=== PATIENT | female | born 1945 | race Caucasian/White ===

== ENCOUNTER 2017-05-13 12:28 | Inpatient (IN) | payer MEDICARE, OTHER ==
[2017-05-13 12:28] VITALS: BMI 25.8
[2017-05-13] MEDS ORDERED: Morphine 4 MG/ML VIAL IV STA (13:28)
--- NOTE | 2017-05-13 13:33 | C.PDOC ---
History Of Present Illness 71 year old female, whose past family history includes CVA and left-sided weakness, presents to the ED accompanied by her and son for evaluation of headache, right hip pain and left hand pain which began after she suffered a fall last night. Patient states she fell backwards after losing balance and notes she has been unable to ambulate since the incident. Today, patient's family decided to bring her in for further evaluation. Patient denies LOC, chest pain, shortness of breath, neck pain, back pain, extremity numbness/ weakness. Chief Complaint (Nursing): Hip Pain History Per: Patient, Family ( and son ) History/Exam Limitations: no limitations Onset/Duration Of Symptoms: Hrs Current Symptoms Are (Timing): Still Present Additional History Per: Patient, Family - Hip Description Of Injury: Fell, Lost Balance Past Medical History Reviewed: Historical Data, Nursing Documentation, Vital Signs Vital Signs: Last Vital Signs Temp 97.7 F 05/13/17 17:52 Pulse 98 H 05/13/17 17:52 Resp 20 05/13/17 17:52 BP 121/79 05/13/17 17:52 Pulse Ox 93 L 05/13/17 20:10 - Medical History PMH: Cardia Arrhythmia, COPD, CVA, HTN, Hypercholesterolemia Surgical History: Cholecystectomy - [facility] Procedures ENTERAL INFUSION OF CONCENTRATED NUT. SUBSTANCES (08/24/14) INFLUENZA VACCINATION (08/16/14) INJECT/INFUSE THROMBOLYTIC AGENT (08/24/14) OCCUPATIONAL THERAPY (08/24/14) PERCUTANEOUS [ENDOSCOPIC] GASTROSTOMY [PEG] (08/24/14) PHYSICAL THERAPY NEC (08/24/14) VACCINATION NEC (11/05/13) Family History: States: OR - Social History Hx Tobacco Use: Yes (past smoker) Hx Alcohol Use: No Hx Substance Use: No - Immunization History Hx Tetanus Toxoid Vaccination: No Hx Influenza Vaccination: No Hx Pneumococcal Vaccination: No Review Of Systems Cardiovascular: Negative for: Chest Pain Respiratory: Negative for: Shortness of Breath Musculoskeletal: Positive for: Hand Pain (right), Other (left hip pain ). Negative for: Neck Pain, Back Pain Neurological: Positive for: Headache. Negative for: Weakness, Numbness, Other ( LOC ) Physical Exam - Physical Exam Appears: Non-toxic, No Acute Distress Skin: Normal Color, Warm, Dry Head: Tenderness (right parietal scalp ), No Swelling, No Abrasion, No Laceration Eye(s): bilateral: Normal Inspection Oral Mucosa: Moist Neck: No Step Off Deformity, Supple Chest: Symmetrical, No Deformity, No Tenderness Cardiovascular: Rhythm Regular, No Murmur Respiratory: Normal Breath Sounds, No Rales, No Rhonchi, No Wheezing Gastrointestinal/Abdominal: Soft, No Tenderness, No Guarding, No Rebound Extremity: Normal ROM, Tenderness (lateral aspect of right hip, dorsal aspect of left hand ), No Calf Tenderness, Capillary Refill (less than 2 seconds ), No Deformity, Swelling (to dorsal aspect of left hand ) Neurological/Psych: Oriented x3, Normal Speech, Normal Cognition Gait: Unable To Assess ED Course And Treatment - Laboratory Results Result Diagrams: 05/13/17 14:30 05/13/17 14:30 ECG: Interpreted By Me, Viewed By Me ECG Rhythm: Sinus Rhythm Interpretation Of ECG: Normal Sinus Rhythm at rate 83bpm. Nonspecific ST Abnormality. Rate From EC O2 Sat by Pulse Oximetry: 93 - Other Rad left hand XR X-Ray: Interpreted by Me, Viewed By Me, Read By Radiologist Interpretation: IMPRESSION: Diffuse osseous demineralization. Displaced fracture of the distal 2nd metacarpal. Soft tissue swelling. Hip/pelvis XR X-Ray: Interpreted by Me, Viewed By Me, Read By Radiologist Interpretation: IMPRESSION: No acute fracture dislocation of the right hip with the pelvic ring remaining intact though degenerative changes are seen at the bilateral sacroiliac and hip joints symmetrically. CT Head X-Ray: Interpreted by Me, Viewed By Me, Read By Radiologist Interpretation: IMPRESSION: Encephalomalacia within the right MCA territory as above. Ex vacuo dilatation of the right lateral ventricle. Please note that MRI with diffusion imaging is more sensitive in the detection of acute ischemic event. CXR X-Ray: Interpreted by Me, Viewed By Me, Read By Radiologist Interpretation: IMPRESSION: Potential limited right middle lobe infiltrate. Further clinical correlation is advised. Interval cardiomegaly is not completely excluded although there is likely an element of technical magnification caused by frontal technique. No pulmonary vascular derangement pattern appreciable at this time. Medical Decision Making Medical Decision Making: Initial Impression: 71 y/o female with headache, hip pain and hand pain s/p fall Plan: * Bloodwork * CT Head * CXR * Left hand XR * Hip XR * Morphine IV * Tylenol PO * reassess and disposition Progress: Bloodwork, CT Head, CXR, Left Hand XR, and Hip XR ordered and reviewed. Morphine IV and Tylenol PO administered. Left hand XR finding displaced fracture of the distal 2nd metacarpal. Volar splint applied by business technology teacher and checked by me. attempted to ambulate patient and patient unable to stand. Will admit to hospital. Case discussed with patient's PMD, Dr. Alonso, who advised admission to med surgical floor. Advised Dr. Torrez for consult. Disposition Discussed With : Abhay Alonso Comment: Dr. Licea for ortho consult Doctor Will See Patient In The: Hospital - Disposition Disposition: HOSPITALIZED Disposition Time: 16:34 Condition: FAIR - Clinical Impression Clinical Impression: Hip pain, Fracture, metacarpal - Scribe Statement The provider has reviewed the documentation as recorded by the Scribe (Edith De Jesus) Provider Attestation: All medical record entries made by the Scribe were at my direction and personally dictated by me. I have reviewed the chart and agree that the record accurately reflects my personal performance of the history, physical exam, medical decision making, and the department course for this patient. I have also personally directed, reviewed, and agree with the discharge instructions and disposition.
[2017-05-13] MEDS ORDERED: Morphine 4 MG/ML VIAL ONE (14:30)
--- NOTE | 2017-05-13 14:32 | RAD ---
PROCEDURE: Left Hand Radiographs. HISTORY: fall COMPARISON: None available. FINDINGS: BONES: Diffuse osseous demineralization. Displaced fracture of the distal 2nd metacarpal. JOINTS: No dislocation. SOFT TISSUES: Soft tissue swelling. No evidence of radiopaque foreign body. OTHER FINDINGS: None. IMPRESSION: Diffuse osseous demineralization. Displaced fracture of the distal 2nd metacarpal. Soft tissue swelling.
[2017-05-13 14:34] LABS: BASO % 0.3 % (0.0-2.0); EOS # 0.1 K/uL (0.0-0.7); EOS % 0.6 % (0.0-4.0); HEMATOCRIT 47.9 % (34.0-47.0); LYMPH # 1.1 K/uL (1.0-4.3); LYMPH % 12.3 % (20.0-40.0); MEAN CELL VOLUME 98.5 fL (81.0-99.0); MEAN CORPUSCULAR HEMOGLOBIN 33.8 pg (27.0-31.0); MEAN CORPUSCULAR HGB CONC 34.3 g/dL (33.0-37.0); MEAN PLATELET VOLUME 10.3 fL (7.2-11.7); NRBC % 0.1 % (0.0-2.0); RED CELL DISTRIBUTION WIDTH 13.9 % (11.5-14.5); WHITE BLOOD COUNT 9.3 K/uL (4.8-10.8)
[2017-05-13 14:46] LABS: CHLORIDE 102 mmol/L (98-107); SODIUM 139 mmol/L (132-148)
[2017-05-13 14:48] LABS: ALKALINE PHOSPHATASE 119 U/L (38-126); AST/SGOT 88 U/L (14-36); CARBON DIOXIDE 28 mmol/L (22-30); GFR AFRICAN-AMERICAN > 60; TOTAL PROTEIN 8.1 g/dL (6.3-8.3)
[2017-05-13 14:49] LABS: ALT/SGPT 64 U/L (9-52); BLOOD UREA NITROGEN 26 mg/dL (7-17); CALCIUM 10.1 mg/dl (8.6-10.4); GLUCOSE,RANDOM 77 mg/dL (65-105)
[2017-05-13 15:06] LABS: POTASSIUM 4.9 mmol/L (3.6-5.2)
--- NOTE | 2017-05-13 15:14 | CT ---
PROCEDURE: CT HEAD WITHOUT CONTRAST. HISTORY: R/O Bleed COMPARISON: Noncontrast head CT performed 07/25/15 TECHNIQUE: Axial computed tomography images were obtained through the head/brain without intravenous contrast. Radiation dose: Total exam DLP = 765.05 mGy-cm. This CT exam was performed using one or more of the following dose reduction techniques: Automated exposure control, adjustment of the mA and/or kV according to patient size, and/or use of iterative reconstruction technique. FINDINGS: HEMORRHAGE: No intracranial hemorrhage. BRAIN: No mass effect or edema. Encephalomalacia involving the frontal, parietal, and temporal lobes, as well as the basal ganglia, consistent with a chronic right MCA infarction. Scattered foci of calcification the brain, which may be the result of prior infectious processes. VENTRICLES: No hydrocephalus. Ex vacuo dilatation of the right lateral ventricle. CALVARIUM: Unremarkable. PARANASAL SINUSES: Unremarkable as visualized. No significant inflammatory changes. MASTOID AIR CELLS: Unremarkable as visualized. No inflammatory changes. OTHER FINDINGS: None. IMPRESSION: Encephalomalacia within the right MCA territory as above. Ex vacuo dilatation of the right lateral ventricle. Please note that MRI with diffusion imaging is more sensitive in the detection of acute ischemic event.
--- NOTE | 2017-05-13 15:58 | RAD ---
PROCEDURE: CHEST RADIOGRAPH, 1 VIEW HISTORY: SOB COMPARISON: Portable chest 07/25/2015 FINDINGS: LUNGS: There is a borderline area patchy density obscuring the rior border and may indicate a limited right middle lobe infiltrate. Clinically correlate here. No left-sided airspace disease identified. PLEURA: No pneumothorax or pleural fluid seen. CARDIOVASCULAR: Mildly prominent cardiac silhouette is identified. No pulmonary vascular derangement. OSSEOUS STRUCTURES: No significant abnormalities. VISUALIZED UPPER ABDOMEN: Normal. OTHER FINDINGS: None. IMPRESSION: Potential limited right middle lobe infiltrate. Further clinical correlation is advised. Interval cardiomegaly is not completely excluded although there is likely an element of technical magnification caused by frontal technique. No pulmonary vascular derangement pattern appreciable at this time.
--- NOTE | 2017-05-13 16:00 | RAD ---
PROCEDURE: Right Hip Radiographs. HISTORY: fall COMPARISON: None. FINDINGS: BONES: The pelvic ring appears intact as well as the right hip without fracture identified. No destructive bony lesion is identified. Pubic symphysis appears intact. JOINTS: Degenerative sclerosis is appreciated related to the cortex of the bilateral hip joints as well as sacroiliac joints symmetrically. No dislocation of the right hip joint is identified. SOFT TISSUES: Vascular calcifications are identified in the pelvis soft tissues toward the right inferiorly. OTHER FINDINGS: None. IMPRESSION: No acute fracture dislocation of the right hip with the pelvic ring remaining intact though degenerative changes are seen at the bilateral sacroiliac and hip joints symmetrically.
[2017-05-13] MEDS: Acetaminophen-Codeine 300/30 mg Tab PO PRN (22:30)
[2017-05-14 06:48] LABS: INR 1.7
[2017-05-14] MEDS ORDERED: Tiotropium 18 mcg Cap For Inhalation IH SCH (08:00)
[2017-05-14] MEDS: Fluticasone-Salmeterol 250-50mcg Diskus INH SCH ×2 (09:47→19:37)
[2017-05-14] MEDS: Tiotropium 18 mcg Cap For Inhalation IH SCH (09:49)
--- NOTE | 2017-05-14 12:26 | CP.PCM.HP ---
History of Present Illness - History of Present Illness History of Present Illness: 71 years old female with PMHx significant for HTN, COPD, CVA, Left Hemiplegia and Atrial Fibrillation. Patient brought to ER by family members after patient sustained a fall at home. X Ray of the left hand showed Metacarpal Fracture. Patient denies headache, dizziness, neck pain, chest pain, shortness of breath, abdominal pain or urinary symptoms. Present on Admission - Present on Admission Any Indicators Present on Admission: No Review of Systems - Musculoskeletal Musculoskeletal: Abnormal Gait, Limited Range of Motion, Muscle Weakness Past Patient History - Infectious Disease Hx of Infectious Diseases: None - Past Medical History & Family History Past Medical History?: Yes - Past Social History Smoking Status: Former Smoker - CARDIAC Hx Cardia Arrhythmia: Yes Hx Hypercholesterolemia: Yes Hx Hypertension: Yes - PULMONARY Hx Chronic Obstructive Pulmonary Disease (COPD): Yes - NEUROLOGICAL Hx Neurological Disorder: Yes HX Cerebrovascular Accident: Yes Hx Syncope: Yes - HEENT Hx HEENT Problems: No - RENAL Hx Chronic Kidney Disease: No - ENDOCRINE/METABOLIC Hx Endocrine Disorders: No - HEMATOLOGICAL/ONCOLOGICAL Hx Blood Disorders: No - INTEGUMENTARY Hx Dermatological Problems: No - MUSCULOSKELETAL/RHEUMATOLOGICAL Hx Arthritis: No Hx Falls: Yes - GASTROINTESTINAL Hx Gastrointestinal Disorders: No - GENITOURINARY/GYNECOLOGICAL Hx Genitourinary Disorders: No - PSYCHIATRIC Hx Substance Use: No - SURGICAL HISTORY Hx Cholecystectomy: Yes - ANESTHESIA Hx Anesthesia: Yes Hx Anesthesia Reactions: No Hx Malignant Hyperthermia: No Meds Allergies/Adverse Reactions: Allergies Allergy/AdvReac Type Severity Reaction Status Date / Time Penicillins Allergy Verified 05/13/17 12:47 Physical Exam - Constitutional Appears: No Acute Distress - Head Exam Head Exam: ATRAUMATIC, NORMAL INSPECTION, NORMOCEPHALIC - Eye Exam Eye Exam: EOMI, Normal appearance, PERRL - ENT Exam ENT Exam: Mucous Membranes Moist, Normal Exam - Neck Exam Neck exam: Positive for: Full Rom, Normal Inspection - Respiratory Exam Respiratory Exam: Clear to Auscultation Bilateral, NORMAL BREATHING PATTERN - Cardiovascular Exam Cardiovascular Exam: REGULAR RHYTHM, +S1, +S2 - GI/Abdominal Exam GI & Abdominal Exam: Normal Bowel Sounds, Soft - Extremities Exam Extremities exam: Positive for: normal capillary refill, normal inspection - Back Exam Back exam: NORMAL INSPECTION - Neurological Exam Neurological exam: Alert, Oriented x3 - Expanded Neurological Exam Expanded Neuro motor strength exam: Left Upper Extremity: 2/1, Left Lower Extremity: 2/ - Psychiatric Exam Psychiatric exam: Normal Affect, Normal Mood - Skin Skin Exam: Dry, Intact, Normal Color, Warm Results - Vital Signs Recent Vital Signs: Last Vital Signs Temp 98.6 F 05/14/17 08:20 Pulse 106 H 05/14/17 08:20 Resp 20 05/14/17 08:20 BP 133/73 05/14/17 08:45 Pulse Ox 96 05/14/17 08:20 - Labs Result Diagrams: 05/13/17 14:30 05/13/17 14:30 Labs: Laboratory Results - last 24 hr 05/13/17 05/13/17 05/14/17 14:30 14:30 06:19 WBC 9.3 D RBC 4.86 Hgb 16.4 H D Hct 47.9 H MCV 98.5 MCH 33.8 H MCHC 34.3 RDW 13.9 Plt Count 135 MPV 10.3 Neut % (Auto) 75.8 H Lymph % (Auto) 12.3 L [place] % (Auto) 11.0 H Eos % (Auto) 0.6 Baso % (Auto) 0.3 Neut # 7.0 Lymph # 1.1 [place] # 1.0 H Eos # 0.1 Baso # 0.0 PT 19.2 H INR 1.7 APTT 33 Sodium 139 Potassium 4.9 Chloride 102 Carbon Dioxide 28 Anion Gap 14 BUN 26 H Creatinine 0.8 Est GFR ( Amer) > 60 Est GFR (Non-Af Amer) > 60 POC Glucose (mg/dL) Random Glucose 77 Calcium 10.1 Total Bilirubin 3.0 H AST 88 H ALT 64 H D Alkaline Phosphatase 119 Total Creatine Kinase 263 H Troponin I 0.0480 Total Protein 8.1 Albumin 4.0 Globulin 4.1 H Albumin/Globulin Ratio 1.0 05/14/17 05/14/17 07:20 11:18 WBC RBC Hgb Hct MCV MCH MCHC RDW Plt Count MPV Neut % (Auto) Lymph % (Auto) [place] % (Auto) Eos % (Auto) Baso % (Auto) Neut # Lymph # [place] # Eos # Baso # PT INR APTT Sodium Potassium Chloride Carbon Dioxide Anion Gap BUN Creatinine Est GFR ( Amer) Est GFR (Non-Af Amer) POC Glucose (mg/dL) 81 97 Random Glucose Calcium Total Bilirubin AST ALT Alkaline Phosphatase Total Creatine Kinase Troponin I Total Protein Albumin Globulin Albumin/Globulin Ratio Assessment & Plan (1) Fracture, metacarpal Assessment and Plan: Orthopedic evaluation. Pain management. Status: Acute (2) Atrial fibrillation Assessment and Plan: Cardiology evaluation. Continue same treatment. Status: Chronic Priority: Medium (3) COPD (chronic obstructive pulmonary disease) Assessment and Plan: Continue same treatment. Status: Acute (4) Hypertension Assessment and Plan: Continue same treatment. Status: Acute
--- NOTE | 2017-05-14 15:33 | CARD ---
APPROVED REPORT EKG Measurement Heart [id number] <Conclusion> Normal sinus rhythm Nonspecific ST abnormality Abnormal ECG
[2017-05-14] MEDS: Acetaminophen-Codeine 300/30 mg Tab PO PRN (16:45)
[2017-05-14] MEDS: Rosuvastatin Calcium 2.5 mg Tab PO SCH (21:21)
--- NOTE | 2017-05-14 22:49 | CP.PCM.CON ---
History of Present Illness - History of Present Illness History of Present Illness: 71 years old female with PMHx significant for HTN, COPD, CVA, Left Hemiplegia and Atrial Fibrillation. Patient brought to ER by family members after patient sustained a fall at home. X Ray of the left hand showed Metacarpal Fracture. Patient denies headache, dizziness, neck pain, chest pain, shortness of breath, abdominal pain or urinary symptoms. Present on Admission - Present on Admission Any Indicators Present on Admission: No Review of Systems - Musculoskeletal Musculoskeletal: Abnormal Gait, Limited Range of Motion, Muscle Weakness Meds Allergies/Adverse Reactions: Allergies Allergy/AdvReac Type Severity Reaction Status Date / Time Penicillins Allergy Verified 05/13/17 12:47 Physical Exam - Constitutional Appears: No Acute Distress - Head Exam Head Exam: ATRAUMATIC, NORMAL INSPECTION, NORMOCEPHALIC - Eye Exam Eye Exam: EOMI, Normal appearance, PERRL - ENT Exam ENT Exam: Mucous Membranes Moist, Normal Exam - Neck Exam Neck exam: Positive for: Full Rom, Normal Inspection - Respiratory Exam Respiratory Exam: Clear to Auscultation Bilateral, NORMAL BREATHING PATTERN - Cardiovascular Exam Cardiovascular Exam: REGULAR RHYTHM, +S1, +S2 - GI/Abdominal Exam GI & Abdominal Exam: Normal Bowel Sounds, Soft - Extremities Exam Extremities exam: Positive for: normal capillary refill, normal inspection - Back Exam Back exam: NORMAL INSPECTION - Neurological Exam Neurological exam: Alert, Oriented x3 - Expanded Neurological Exam Expanded Neuro motor strength exam: Left Upper Extremity: 2/1, Left Lower Extremity: 2/1 - Psychiatric Exam Psychiatric exam: Normal Affect, Normal Mood - Skin Skin Exam: Dry, Intact, Normal Color, Warm Past Patient History - Infectious Disease Hx of Infectious Diseases: None - Past Medical History & Family History Past Medical History?: Yes - Past Social History Smoking Status: Former Smoker - CARDIAC Hx Cardiac Disorders: Yes (A.Fib) Hx Hypercholesterolemia: Yes Hx Hypertension: Yes - PULMONARY Hx Chronic Obstructive Pulmonary Disease (COPD): Yes - NEUROLOGICAL HX Cerebrovascular Accident: Yes (left keon) - HEENT Hx HEENT Problems: No - RENAL Hx Chronic Kidney Disease: No - ENDOCRINE/METABOLIC Hx Endocrine Disorders: No - HEMATOLOGICAL/ONCOLOGICAL Hx Blood Disorders: No - INTEGUMENTARY Hx Dermatological Problems: No - MUSCULOSKELETAL/RHEUMATOLOGICAL Hx Arthritis: Yes - GASTROINTESTINAL Hx Gastrointestinal Disorders: No - GENITOURINARY/GYNECOLOGICAL Hx Genitourinary Disorders: No - PSYCHIATRIC Hx Substance Use: No - SURGICAL HISTORY Hx Cholecystectomy: Yes - ANESTHESIA Hx Anesthesia: Yes Hx Anesthesia Reactions: No Hx Malignant Hyperthermia: No Meds Allergies/Adverse Reactions: Allergies Allergy/AdvReac Type Severity Reaction Status Date / Time Penicillins Allergy Verified 05/13/17 12:47 - Medications Medications: Current Medications Acetaminophen (Tylenol 325mg Tab) 650 mg PO Q6 PRN PRN Reason: Pain, moderate (4-7) Albuterol Sulfate (Albuterol 0.083% Inhal [place] (2.5 Mg/3 Ml) Ud) 2.5 mg IH RQ4 PRN PRN Reason: Shortness of Breath Amiodarone HCl (Cordarone) 200 mg PO HS [facility] Last Admin: 05/14/17 21:21 Dose: 200 mg Apixaban (Eliquis) 5 mg PO Q12H [facility] Last Admin: 05/14/17 11:35 Dose: 5 mg Famotidine (Pepcid) 20 mg PO DAILY [facility] Last Admin: 05/14/17 09:12 Dose: 20 mg Levetiracetam (Keppra) 250 mg PO BID [facility] Last Admin: 05/14/17 17:09 Dose: 250 mg Metoprolol Tartrate (Lopressor) 25 mg PO Q8H [facility] Last Admin: 05/14/17 16:38 Dose: 25 mg Morphine Sulfate (Morphine) 2 mg IVP Q4 PRN PRN Reason: Pain, severe (8-10) Pneumococcal Polyvalent Vaccine (Pneumovax 23 Vaccine) 0.5 ml IM .ONCE ONE Stop: 05/15/17 10:01 Rosuvastatin Calcium (Crestor) 2.5 mg PO HS [facility] Last Admin: 05/14/17 21:21 Dose: 2.5 mg Fluticasone/Salmeterol (Advair Diskus 250/50) 1 puff INH RQ12 [facility] Last Admin: 05/14/17 19:37 Dose: 1 puff Tiotropium [place] (Spiriva) 18 mcg IH RQD [facility] Last Admin: 05/14/17 09:49 Dose: 18 mcg Results - Vital Signs Recent Vital Signs: Last Vital Signs Temp 98.4 F 05/14/17 15:00 Pulse 123 H 05/14/17 15:00 Resp 20 05/14/17 15:00 BP 131/90 05/14/17 16:42 Pulse Ox 95 05/14/17 15:00 - Labs Result Diagrams: 05/13/17 14:30 05/13/17 14:30 Labs: Laboratory Results - last 24 hr 05/14/17 05/14/17 05/14/17 06:19 07:20 11:18 PT 19.2 H INR 1.7 APTT 33 POC Glucose (mg/dL) 81 97 05/14/17 05/14/17 16:06 21:13 PT INR APTT POC Glucose (mg/dL) 99 122 H Assessment & Plan - Assessment and Plan (Free Text) Assessment: (1) Fracture, metacarpal Assessment and Plan: Orthopedic evaluation. Pain management. Status: Acute (2) Atrial fibrillation Assessment and Plan: Rate controlled Continue anticoagulation for A Fib (3) COPD (chronic obstructive pulmonary disease) Assessment and Plan: Continue same treatment. Status: Acute (4) Hypertension Assessment and Plan: Continue same treatment. Status: Acute
[2017-05-15] MEDS: Tiotropium 18 mcg Cap For Inhalation IH SCH (07:38)
[2017-05-15] MEDS: Fluticasone-Salmeterol 250-50mcg Diskus INH SCH ×2 (07:38→19:59)
[2017-05-15] MEDS: Albuterol 0.083% Inhal Sol (2.5 mg/3 mL) UD IH PRN (07:38)
[2017-05-15] MEDS ORDERED: Pneumococcal 23-Valent Vaccine IM ONE (10:00)
[2017-05-15] MEDS ORDERED: Influenza Vaccine 60 mcg/0.5 mL SYR (4YR UP) IM ONE (10:00)
--- NOTE | 2017-05-15 11:47 | CP.PCM.CON ---
History of Present Illness - History of Present Illness History of Present Illness: Plastic Surgery Consult Note for Dr. Fang Reason for consult: 2nd Metacarpal fracture 71 F with PMH of HTN, COPD, CVA, Left Hemiplegia and Atrial Fibrillation presented to [facility] for mechanical fall. Patient was walking at home when she lost her balance and tried to grab shoe rack but could not hold herself up. History was provided by son who was at bedside. ER did X Ray of the left hand which showed short oblique displaced fracture of 2nd metacarpal neck. Patient complaining of diffuse pain on left hand. Patient unable to quantify or qualify pain. Denies any exacerbating or alleviating factors. ROS unobtainable due to clinical condition. PMH: HTN, COPD, CVA, Left Hemiplegia and Atrial Fibrillation Meds: As per EMR Allergy: PCN PSH: Cholecystectomy FH: unknown Social: former smoker, denies etoh or illicit drug use, patient has residual left hemiplegia and needs some assistance with ADLs Review of Systems - Review of Systems Systems not reviewed;Unavailable: Acuity of Condition Past Patient History - Infectious Disease Hx of Infectious Diseases: None - Past Medical History & Family History Past Medical History?: Yes - Past Social History Smoking Status: Former Smoker - CARDIAC Hx Cardiac Disorders: Yes (A.Fib) Hx Hypercholesterolemia: Yes Hx Hypertension: Yes - PULMONARY Hx Chronic Obstructive Pulmonary Disease (COPD): Yes - NEUROLOGICAL HX Cerebrovascular Accident: Yes (left keon) - HEENT Hx HEENT Problems: No - RENAL Hx Chronic Kidney Disease: No - ENDOCRINE/METABOLIC Hx Endocrine Disorders: No - HEMATOLOGICAL/ONCOLOGICAL Hx Blood Disorders: No - INTEGUMENTARY Hx Dermatological Problems: No - MUSCULOSKELETAL/RHEUMATOLOGICAL Hx Arthritis: Yes - GASTROINTESTINAL Hx Gastrointestinal Disorders: No - GENITOURINARY/GYNECOLOGICAL Hx Genitourinary Disorders: No - PSYCHIATRIC Hx Substance Use: No - SURGICAL HISTORY Hx Cholecystectomy: Yes - ANESTHESIA Hx Anesthesia: Yes Hx Anesthesia Reactions: No Hx Malignant Hyperthermia: No Meds Allergies/Adverse Reactions: Allergies Allergy/AdvReac Type Severity Reaction Status Date / Time Penicillins Allergy Verified 05/13/17 12:47 - Medications Medications: Current Medications Acetaminophen (Tylenol 325mg Tab) 650 mg PO Q6 PRN PRN Reason: Pain, moderate (4-7) Albuterol Sulfate (Albuterol 0.083% Inhal [place] (2.5 Mg/3 Ml) Ud) 2.5 mg IH RQ4 PRN PRN Reason: Shortness of Breath Last Admin: 05/15/17 07:38 Dose: 2.5 mg Amiodarone HCl (Cordarone) 200 mg PO HS [facility] Last Admin: 05/14/17 21:21 Dose: 200 mg Apixaban (Eliquis) 5 mg PO Q12H [facility] Last Admin: 05/15/17 00:54 Dose: 5 mg Famotidine (Pepcid) 20 mg PO DAILY [facility] Last Admin: 05/15/17 09:09 Dose: 20 mg Levetiracetam (Keppra) 250 mg PO BID [facility] Last Admin: 05/15/17 09:09 Dose: 250 mg Metoprolol Tartrate (Lopressor) 25 mg PO Q8H [facility] Last Admin: 05/15/17 08:42 Dose: 25 mg Morphine Sulfate (Morphine) 2 mg IVP Q4 PRN PRN Reason: Pain, severe (8-10) Rosuvastatin Calcium (Crestor) 2.5 mg PO HS [facility] Last Admin: 05/14/17 21:21 Dose: 2.5 mg Fluticasone/Salmeterol (Advair Diskus 250/50) 1 puff INH RQ12 [facility] Last Admin: 05/15/17 07:38 Dose: 1 puff Tiotropium Keo (Spiriva) 18 mcg IH RQD [facility] Last Admin: 05/15/17 07:38 Dose: 18 mcg Physical Exam - Constitutional Appears: No Acute Distress - Head Exam Head Exam: ATRAUMATIC, NORMOCEPHALIC - ENT Exam ENT Exam: Mucous Membranes Moist - Respiratory Exam Respiratory Exam: NORMAL BREATHING PATTERN - Cardiovascular Exam Cardiovascular Exam: REGULAR RHYTHM - GI/Abdominal Exam GI & Abdominal Exam: Soft. absent: Distended, Guarding, Rebound, Tenderness - Extremities Exam Additional comments: Left hand with ecchymosis and edema, tender to touch - Neurological Exam Neurological exam: Alert - Psychiatric Exam Psychiatric exam: Flat Affect - Skin Skin Exam: Dry, Intact, Warm Results - Vital Signs Recent Vital Signs: Last Vital Signs Temp 98.3 F 05/15/17 08:16 Pulse 101 H 05/15/17 08:16 Resp 20 05/15/17 08:16 BP 128/70 05/15/17 08:42 Pulse Ox 99 05/15/17 08:16 - Labs Result Diagrams: 05/13/17 14:30 05/13/17 14:30 Labs: Laboratory Results - last 24 hr 05/14/17 05/14/17 05/15/17 16:06 21:13 07:11 POC Glucose (mg/dL) 99 122 H 83 05/15/17 11:03 POC Glucose (mg/dL) 119 H Assessment & Plan - Assessment and Plan (Free Text) Plan: 71 F with short oblique displaced fracture of 2nd metacarpal neck on L hand -Keep hand in splint -No surgical intervention needed at this time -Analgesics PRN -Rest, elevation, Ice, compression -Patient can follow up with hand specialist as outpatient -DHIRAJ Vasquez PGY1
--- NOTE | 2017-05-15 18:44 | CP.PCM.DIS ---
Provider - Provider Date of Admission: 05/13/17 17:36 Attending physician: Abhay Alonso MD Time Spent in preparation of Discharge (in minutes): 30 Diagnosis - Discharge Diagnosis (1) Fracture, metacarpal Status: Acute Priority: Medium (2) Atrial fibrillation Status: Chronic Priority: Medium (3) COPD (chronic obstructive pulmonary disease) Status: Acute (4) Hypertension Status: Acute Hospital Course - Lab Results Lab Results: Most Recent Lab Values WBC 9.3 K/uL (4.8-10.8) D 05/13/17 14:30 RBC 4.86 Mil/uL (3.80-5.20) 05/13/17 14:30 Hgb 16.4 g/dL (11.0-16.0) H D 05/13/17 14:30 Hct 47.9 % (34.0-47.0) H 05/13/17 14:30 MCV 98.5 fL (81.0-99.0) 05/13/17 14:30 MCH 33.8 pg (27.0-31.0) H 05/13/17 14:30 MCHC 34.3 g/dL (33.0-37.0) 05/13/17 14:30 RDW 13.9 % (11.5-14.5) 05/13/17 14:30 Plt Count 135 K/uL (130-400) 05/13/17 14:30 MPV 10.3 fL (7.2-11.7) 05/13/17 14:30 Neut % (Auto) 75.8 % (50.0-75.0) H 05/13/17 14:30 Lymph % (Auto) 12.3 % (20.0-40.0) L 05/13/17 14:30 [place] % (Auto) 11.0 % (0.0-10.0) H 05/13/17 14:30 Eos % (Auto) 0.6 % (0.0-4.0) 05/13/17 14:30 Baso % (Auto) 0.3 % (0.0-2.0) 05/13/17 14:30 Neut # 7.0 K/uL (1.8-7.0) 05/13/17 14:30 Lymph # 1.1 K/uL (1.0-4.3) 05/13/17 14:30 [place] # 1.0 K/uL (0.0-0.8) H 05/13/17 14:30 Eos # 0.1 K/uL (0.0-0.7) 05/13/17 14:30 Baso # 0.0 K/uL (0.0-0.2) 05/13/17 14:30 PT 19.2 SECONDS (9.7-12.2) H 05/14/17 06:19 INR 1.7 05/14/17 06:19 APTT 33 SECONDS (21-34) 05/14/17 06:19 Sodium 139 mmol/L (132-148) 05/13/17 14:30 Potassium 4.9 mmol/L (3.6-5.2) 05/13/17 14:30 Chloride 102 mmol/L (98-107) 05/13/17 14:30 Carbon Dioxide 28 mmol/L (22-30) 05/13/17 14:30 Anion Gap 14 (10-20) 05/13/17 14:30 BUN 26 mg/dL (7-17) H 05/13/17 14:30 Creatinine 0.8 mg/dL (0.7-1.2) 05/13/17 14:30 Est GFR ( Amer) > 60 05/13/17 14:30 Est GFR (Non-Af Amer) > 60 05/13/17 14:30 POC Glucose (mg/dL) 147 mg/dL (65-110) H 05/15/17 15:59 Random Glucose 77 mg/dL (65-105) 05/13/17 14:30 Calcium 10.1 mg/dl (8.6-10.4) 05/13/17 14:30 Total Bilirubin 3.0 mg/dL (0.2-1.3) H 05/13/17 14:30 AST 88 U/L (14-36) H 05/13/17 14:30 ALT 64 U/L (9-52) H D 05/13/17 14:30 Alkaline Phosphatase 119 U/L (38-126) 05/13/17 14:30 Total Creatine Kinase 263 U/L (30-135) H 05/13/17 14:30 Troponin I 0.0480 ng/mL (0.00-0.120) 05/13/17 14:30 Total Protein 8.1 g/dL (6.3-8.3) 05/13/17 14:30 Albumin 4.0 g/dL (3.5-5.0) 05/13/17 14:30 Globulin 4.1 gm/dL (2.2-3.9) H 05/13/17 14:30 Albumin/Globulin Ratio 1.0 (1.0-2.1) 05/13/17 14:30 - Hospital Course Hospital Course: 71 years old female admitted to [facility] for Metacarpal fracture and Hip pain. Patient underwent Surgeon evaluation who recommended Splint and affected hand and Pain management. Patient will be discharge home, continue home medications. Discharge Exam - Head Exam Head Exam: ATRAUMATIC, NORMAL INSPECTION, NORMOCEPHALIC - Eye Exam Eye Exam: EOMI, Normal appearance, PERRL - ENT Exam ENT Exam: Mucous Membranes Moist - Neck Exam Neck exam: Full Rom, Normal Inspection - Respiratory Exam Respiratory Exam: Clear to PA & Lateral, NORMAL BREATHING PATTERN - Cardiovascular Exam Cardiovascular Exam: REGULAR RHYTHM, +S1, +S2 - GI/Abdominal Exam GI & Abdominal Exam: Normal Bowel Sounds - Extremities Exam Extremities exam: full ROM, normal inspection - Back Exam Back exam: FULL ROM, NORMAL INSPECTION - Neurological Exam Neurological exam: Alert, Oriented x3 - Psychiatric Exam Psychiatric exam: Normal Affect, Normal Mood - Skin Skin Exam: Intact, Normal Color Discharge Plan - Follow Up Plan Condition: FAIR Disposition: HOME/ ROUTINE Instructions: Hypertension (DC), Hypertension (GEN) Referrals: Vandana Licea MD [Staff Provider] -
[2017-05-15] MEDS: Rosuvastatin Calcium 2.5 mg Tab PO SCH (22:22)
[2017-05-16] MEDS: Albuterol 0.083% Inhal Sol (2.5 mg/3 mL) UD IH PRN (07:47)
[2017-05-16] MEDS: Tiotropium 18 mcg Cap For Inhalation IH SCH (07:47)
[2017-05-16] MEDS: Fluticasone-Salmeterol 250-50mcg Diskus INH SCH (07:48)
[2017-05-16 08:25] VITALS: O2SAT 98
[2017-05-16] MEDS ORDERED: Pneumococcal 23-Valent Vaccine IM ONE (10:00)
[2017-05-16] MEDS ORDERED: Influenza Vaccine 60 mcg/0.5 mL SYR (4YR UP) IM ONE (10:00)
[2017-05-16] MEDS: Bacitracin Ointment 30 GM TUBE TOP SCH ×2 (10:39→14:05)
[2017-05-16 16:38] VITALS: BP 127/76
[2017-05-16 16:57] VITALS: PULSE 63; RESP 20; TEMP 98.1
== END 2017-05-16 18:17 | DRG 563 ==
LOC: C.ER 12:28 → C.3T 17:36
PROVIDERS: ADMIT Internal Medicine; ATTEND Internal Medicine
DX: S62.331A Displaced fracture of neck of second metacarpal bone, left hand, initial encounter for closed fracture (principal); M25.551 Pain in right hip; I10 Essential (primary) hypertension; I48.91 Unspecified atrial fibrillation; W18.30XA Fall on same level, unspecified, initial encounter; J44.9 Chronic obstructive pulmonary disease, unspecified; E78.00 Pure hypercholesterolemia, unspecified; I69.354 Hemiplegia and hemiparesis following cerebral infarction affecting left non-dominant side; Y92.009 Unspecified place in unspecified non-institutional (private) residence as the place of occurrence of the external cause; Z79.01 Long term (current) use of anticoagulants; Z87.891 Personal history of nicotine dependence; Z91.81 History of falling; Z90.49 Acquired absence of other specified parts of digestive tract